=== PATIENT | male | born 1960 | race Caucasian/White ===

== ENCOUNTER 2023-11-14 14:25 | Day surgery (SDC) | payer MEDICARE, OTHER ==
[2023-11-14] MEDS ORDERED: BUPIVACAINE 0.5% VIAL IJ ONE (14:26)
[2023-11-14] MEDS ORDERED: Depo-Medrol 40 MG/ML IM ONE (14:26)
[2023-11-14] MEDS ORDERED: LIDOCAINE HCL 1% 50 MG/5 ML VL PF IJ ONE (14:26)
--- NOTE | 2023-11-14 20:08 | XRAY ---
Indication: Bilateral SI joint injection Intraoperative fluoroscopy provided for 24 seconds. 2 digital spot image submitted for interpretation demonstrates posterior needle tips projecting over the expected left and right SI joints. Small amount of contrast injected for needle tip placement. Correlate with intraoperative findings/report.
--- NOTE | 2023-11-15 21:05 | XRAY ---
24 seconds of fluoroscopy was used in surgery for a bilateral sacroiliac joint injection.
== END 2023-11-14 18:05 | disposition home or self-care (01) ==
LOC: SDC-PAIN 14:25
PROVIDERS: ATTEND Psychiatry & Neurology Pain Medicine
DX: M46.1 Sacroiliitis, not elsewhere classified (principal); E11.9 Type 2 diabetes mellitus without complications
CPT/HCPCS: 27096; 72202; 77002; 82947; G0260; J2001; Q9966